=== PATIENT | female | born 1955 | race Caucasian/White ===

== ENCOUNTER 2018-06-04 08:04 | Day surgery (SDC) | payer MEDICARE, BC ==
[2018-06-04] MEDS ORDERED: PROPOFOL 500 MG/50 ML VIAL As Ordered (08:14)
[2018-06-04] MEDS ORDERED: LIDOCAINE 2% INJ 100 MG/5 ML SDV (FOR ANES.) As Ordered (08:15)
[2018-06-04] MEDS: NS 1,000 ML IV (08:15)
== END 2018-06-04 10:19 | disposition home or self-care (01) ==
LOC: M OPP 08:04
DX: K62.5 Hemorrhage of anus and rectum (principal); R10.32 Left lower quadrant pain; K52.9 Noninfective gastroenteritis and colitis, unspecified; K21.9 Gastro-esophageal reflux disease without esophagitis; K64.8 Other hemorrhoids; K63.89 Other specified diseases of intestine; R10.13 Epigastric pain; K22.8 Other specified diseases of esophagus; K44.9 Diaphragmatic hernia without obstruction or gangrene; K31.89 Other diseases of stomach and duodenum; K31.7 Polyp of stomach and duodenum; K29.70 Gastritis, unspecified, without bleeding; K58.9 Irritable bowel syndrome, unspecified; R12 Heartburn; G43.909 Migraine, unspecified, not intractable, without status migrainosus; F32.9 Major depressive disorder, single episode, unspecified; Z78.0 Asymptomatic menopausal state; R06.83 Snoring; Z79.899 Other long term (current) drug therapy; Z80.0 Family history of malignant neoplasm of digestive organs; Z83.71 Family history of colonic polyps
CPT/HCPCS: 45380